=== PATIENT | male | born 1975 | race Caucasian/White ===

== ENCOUNTER 2017-04-13 13:13 | Emergency (ER) | payer OTHER, MEDICAID ==
[~2017-04-13] VITALS: Ht 167.6 cm; Wt 61.2 kg
[~2017-04-13 13:13] MED LIST: ABILIFY 2 MG2 M1; ACETAMINOPHEN-1 EAC1 PO; CELEXA40 MG; CLEOCIN HCL150 MG PO; KEFLEX500 MG PO; NORCO 10-325 T1 EACH PO; PHENERGAN 25 MG25 M1 PO; PREDNISONE 20 M20 MG PO; PRILOSEC40 MG PO; RITALIN5 MG; XANAX XR1 MG; ZPAK PO
[2017-04-13] MEDS ORDERED: ACETAMINOPHEN-1 EAC1 PO (13:48)
[2017-04-13] MEDS ORDERED: CLEOCIN HCL150 MG PO (13:48)
[2017-04-13] MEDS ORDERED: MEDROLDOSEPACK PO (13:48)
[2017-04-13 14:20] VITALS: BP 132/87
== END 2017-04-13 14:20 | disposition home or self-care (01) ==
LOC: M.ERS 13:13
DX: J02.9 Acute pharyngitis, unspecified (principal); F32.9 Major depressive disorder, single episode, unspecified; F41.9 Anxiety disorder, unspecified; F90.9 Attention-deficit hyperactivity disorder, unspecified type; F17.210 Nicotine dependence, cigarettes, uncomplicated; Z88.0 Allergy status to penicillin

== ENCOUNTER 2017-04-19 07:39 | Emergency (ER) | payer OTHER, MEDICAID ==
[~2017-04-19] VITALS: Ht 167.6 cm; Wt 63.5 kg
[~2017-04-19 07:39] MED LIST changes: +MEDROLDOSEPACK PO
[2017-04-19] MEDS ORDERED: PREDNISONE 20 M20 M1 PO (07:59)
[2017-04-19 08:54] LABS: ABSOLUTE BASOPHILS 0.1 thou/uL (0.0-0.2); ABSOLUTE EOSINOPHILS 0.2 thou/uL (0.0-0.7); ABSOLUTE LYMPHOCYTES 3.2 thou/uL (0.8-5.3); ABSOLUTE MONOCYTES 1.7 thou/uL (0.0-1.2); ABSOLUTE NEUTROPHILS 10.7 thou/uL (1.6-8.1); BASOPHILS 0.9 %; EOSINOPHILS 1.5 %; HEMATOCRIT 49.6 % (42.0-52.0); LYMPHOCYTES 20.1 %; MCH 31.2 pg (26.0-34.0); MCHC 34.3 g/dL (28.0-37.0); MCV 91.1 fL (80.0-100.0); MONOCYTES 10.5 %; MPV 8.1 fl. (7.2-11.1); NUCLEATED RBCS 0 /100WBC; PLATELET COUNT* 389 thou/uL (150-400); RBC 5.44 mil/uL (4.50-6.00); RDW-CV 14.4 % (10.5-14.5)
[2017-04-19 09:05] LABS: CALCIUM 8.9 mg/dL (8.5-10.1); POTASSIUM 3.6 mmol/L (3.5-5.1)
[2017-04-19 09:10] LABS: ALBUMIN 3.8 g/dL (3.4-5.0); TOTAL BILIRUBIN 0.7 mg/dL (<0.1-1.0); TOTAL PROTEIN 7.8 g/dL (6.4-8.2)
[2017-04-19 09:32] VITALS: BP 118/85
== END 2017-04-19 09:33 | disposition home or self-care (01) ==
LOC: M.ERS 07:39
PROVIDERS: Family Medicine
DX: J36 Peritonsillar abscess (principal); F41.9 Anxiety disorder, unspecified; F98.8 Other specified behavioral and emotional disorders with onset usually occurring in childhood and adolescence; F32.9 Major depressive disorder, single episode, unspecified; F10.99 Alcohol use, unspecified with unspecified alcohol-induced disorder; Z88.0 Allergy status to penicillin

== ENCOUNTER 2018-09-21 10:56 | Emergency (ER) | payer OTHER, MEDICAID ==
[~2018-09-21] VITALS: Ht 167.6 cm; Wt 61.2 kg
[~2018-09-21 10:56] MED LIST changes: +PREDNISONE 20 M20 M1 PO
[2018-09-21] MEDS ORDERED: KEFLEX500 M1 PO (11:26)
[2018-09-21] MEDS ORDERED: ACETAMINOPHEN-1 EAC1 PO (11:26)
[2018-09-21 11:30] VITALS: BP 139/89
== END 2018-09-21 11:33 | disposition home or self-care (01) ==
LOC: M.ERS 10:56
DX: J02.9 Acute pharyngitis, unspecified (principal); R59.0 Localized enlarged lymph nodes; F32.9 Major depressive disorder, single episode, unspecified; F41.9 Anxiety disorder, unspecified; Z88.0 Allergy status to penicillin

== ENCOUNTER 2018-12-19 17:37 | Emergency (ER) | payer OTHER ==
[~2018-12-19] VITALS: Ht 167.6 cm; Wt 59.4 kg
[~2018-12-19 17:37] MED LIST changes: +KEFLEX500 M1 PO
[2018-12-19] MEDS ORDERED: MEDROLDOSEPACK PO (19:44)
[2018-12-19] MEDS ORDERED: NORFLEX100 MG PO (19:45)
[2018-12-19] MEDS ORDERED: IBU800 MG PO (19:45)
[2018-12-19 19:52] VITALS: BP 125/80
--- NOTE | 2018-12-20 16:56 | EKG ---
[place] [address] ELECTROCARDIOGRAM REPORT Name: PANCHO MERCER Room: [facility]#: [id number] Admission: 12/19/18 Attend Phys: Discharge: 12/19/18 Date of : 79 Report #: [id number] THIS REPORT FOR: //name// [facility] ED Test Date: 2018-12-19 Test Time: 17:53:39 Pat Name: PANCHO MERCER Department: Room: Gender: M Computer Application Developer: : 1975 Requested By: Patricia Li Order Number: [id number] MD: Vu Slaughter Measurements Intervals [place] Rate: 91 P: 69 IA: 152 QRS: 61 QRSD: 89 T: 53 QT: 358 QTc: 441 Interpretive Statements Sinus rhythm No previous ECG available for comparison Electronically Signed On 12-20-2018 16:56:11 CDT by Vu Slaughter [email or web address] <ELECTRONICALLY SIGNED> By: Vu Slaughter MD, [facility] 12/20/18 1656 1753 1753 Vu Slaughter MD, FACC /EPI
== END 2018-12-19 19:54 | disposition home or self-care (01) ==
LOC: M.ERS 17:37
DX: I20.8 Other forms of angina pectoris (principal); F32.9 Major depressive disorder, single episode, unspecified; F41.9 Anxiety disorder, unspecified; F90.9 Attention-deficit hyperactivity disorder, unspecified type; Z88.0 Allergy status to penicillin